=== PATIENT | female | born 1980 | race African-American/Black ===

== ENCOUNTER 2017-12-14 00:10 | Inpatient (IN) | payer OTHER ==
[~2017-12-14] VITALS: Ht 152.4 cm; Wt 53.1 kg
[2017-12-14 00:23] VITALS: BP 132/64; TEMP 99.1
[2017-12-14 00:47] LABS: PLATELET COUNT 374 K/uL (152-353)
[2017-12-14 05:12] VITALS: BP 121/72; TEMP 98.3; Ht 152.4 cm; Wt 53.1 kg
[2017-12-14 08:00] VITALS: BP 120/65; TEMP 98.1
[2017-12-14 12:00] VITALS: BP 132/77; TEMP 98.8
== END 2017-12-14 14:10 | disposition short-term general hospital (02) | DRG 390 ==
LOC: ED 00:10 → MED/SURG 04:10
DX: K56.699 Other intestinal obstruction unspecified as to partial versus complete obstruction (principal); E11.9 Type 2 diabetes mellitus without complications
CPT/HCPCS: 43754; 80053; 81000; 82150; 82607; 82728; 82747; 83540; 83690; 85027; 96374; 96375; 99284; J0696; J1815; J1885; J2270; J2405; J3490; Q9963

== ENCOUNTER 2017-12-14 14:09 | Outpatient (CLI) | payer OTHER | END 2017-12-14 15:32 | disposition short-term general hospital (02) | LOC: AMB 14:09 | DX: K56.699 Other intestinal obstruction unspecified as to partial versus complete obstruction (principal); E11.9 Type 2 diabetes mellitus without complications | CPT/HCPCS: A0425; A0429 ==

== ENCOUNTER 2019-02-08 17:36 | Emergency (ER) | payer OTHER ==
[~2019-02-08] VITALS: Ht 152.4 cm; Wt 54.4 kg
[2019-02-08 18:39] LABS: PLATELET COUNT 373 K/uL (152-353)
[2019-02-08 18:54] LABS: POTASSIUM 3.6 mmol/L (3.6-5.2)
[2019-02-08 23:15] VITALS: TEMP 98.2
[2019-02-09 00:22] VITALS: BP 128/78
== END 2019-02-09 01:02 | disposition short-term general hospital (02) ==
LOC: ED 17:36
PROVIDERS: Family Medicine
DX: K56.51 Intestinal adhesions [bands], with partial obstruction (principal)
CPT/HCPCS: 80053; 81000; 85027; 96374; 96375; 99285; J1815; J1885; J3490; Q9963